=== PATIENT | female | born 1995 | race Caucasian/White ===

== ENCOUNTER → 2019-02-25 | Outpatient (CLI) | payer OTHER ==
--- NOTE | 2019-02-25 14:21 | REP ---
MRI brain without contrast: History: Chronic headache. Positive Romberg's sign. No comparison brain imaging. The patient reports episodes of dizziness and blackouts. Findings: The bony calvarium is intact. There is evidence of 25 mm of tonsillar ectopia at the foramen magnum with compression of the spinal medullary junction consistent with significant Arnold Chiari 1 type malformation. There is no evidence of hydrocephalous. No abnormal intracranial fluid collection is appreciated. There is no evidence of restricted diffusion to suggest acute ischemia. No hemorrhage or mass lesion is observed. No intraorbital abnormality is seen. There is no MR evidence of significant paranasal sinus disease. Impression: Moderate to marked tonsillar ectopia with compression of the spinal medullary junction at the level of the foramen magnum consistent with significant Arnold Chiari malformation type 1. No evidence of hydrocephalous. Electronically Signed by Tyler Chapin MD 02/25/2019 02:28 P
== END ==
LOC: M RAD 09:24
PROVIDERS: ATTEND Family Medicine
DX: G93.5 Compression of brain (principal)

== ENCOUNTER → 2019-05-21 | Outpatient (CLI) | payer OTHER ==
--- NOTE | 2019-05-21 17:15 | REPVR ---
PROCEDURE INFORMATION: Exam: MR Lumbar Spine Without Contrast. Exam date and time: 05/21/2019 3:27 PM Clinical history: 23 years old, female; Other: Pre-op for chiari surgery; Additional info: H/o chiari syndrome TECHNIQUE: Imaging protocol: Multiplanar magnetic resonance images of the lumbar spine without intravenous contrast. COMPARISON: No relevant prior studies available. FINDINGS: Vertebrae: Unremarkable. Spinal cord: Normal signal. No cord compression. L1-L2: No significant disc disease. No significant spinal stenosis. L2-L3: No significant disc disease. No significant spinal stenosis. L3-L4: No significant disc disease. No significant spinal stenosis. L4-L5: No significant disc disease. No significant spinal stenosis. L5-S1: No significant disc disease. No significant spinal stenosis. Soft tissues: Unremarkable. IMPRESSION: No acute abnormality. Electronically signed by: Kevin Sow On 05/21/2019 17:15:15 PM
--- NOTE | 2019-05-21 17:18 | REPVR ---
PROCEDURE INFORMATION: Exam: MR Thoracic Spine Without Contrast Exam date and time: 05/21/2019 3:28 PM Clinical history: 23 years old, female; Other: Pre op for chiari surgery; Additional info: H/o chiari syndrome TECHNIQUE: Imaging protocol: Multiplanar magnetic resonance images of the thoracic spine without contrast. COMPARISON: No relevant prior studies available. FINDINGS: Vertebrae: Unremarkable. Spinal cord: Normal signal. No cord compression. Discs/Spinal canal/Neural foramina: No significant disc disease. No significant spinal stenosis. Soft tissues: Unremarkable. IMPRESSION: Unremarkable thoracic spine. Electronically signed by: Kevin Sow On 05/21/2019 17:17:51 PM
--- NOTE | 2019-05-21 17:28 | REPVR ---
PROCEDURE INFORMATION: Exam: MR Cervical Spine Without Contrast Exam date and time: 05/21/2019 3:28 PM Clinical history: 23 years old, female; Other: Pre op for chiair surgery; Additional info: H/o chiari syndrome TECHNIQUE: Imaging protocol: Multiplanar magnetic resonance images of the cervical spine without intravenous contrast. COMPARISON: No relevant prior studies available. FINDINGS: Vertebrae: Unremarkable. Spinal cord: Approximate 10 mm long segment of increased signal within the upper cervical cord at the level of the C2 vertebral body. Discs/Spinal canal/Neural foramina: No significant disc disease. Brain: Elongated, peg-shaped cerebellar tonsils extend approximately 2.5 cm below foramen magnum into cervical spinal consistent with Chiari 1 malformation. Vasculature: Expected flow voids in the vertebral arteries. Soft tissues: Unremarkable IMPRESSION: Chiari 1 malformation with approximate 10 mm long segment of increased signal within the upper cervical spinal cord. Electronically signed by: Kevin Sow On 05/21/2019 17:28:22 PM
== END ==
LOC: M PLARAD 15:26
PROVIDERS: ATTEND Nurse Practitioner Pediatrics
DX: G93.5 Compression of brain (principal)

== ENCOUNTER 2019-05-30 05:10 | Emergency (ER) | payer OTHER ==
[~2019-05-30] VITALS: Ht 170.2 cm; Wt 116.4 kg
[2019-05-30] MEDS ORDERED: chlorproMAZINE INJ 50MG/2ML AMP (J3230) IM STA (05:58)
[2019-05-30 05:59] VITALS: BP 141/96
[2019-05-30] MEDS ORDERED: MORPHINE 4 MG/ML 1ML VIAL/SYRINGE (J2270) IM ONE (06:00)
--- NOTE | 2019-05-30 06:11 | REPVR ---
PROCEDURE INFORMATION: Exam: CT Head without contrast Exam date and time: 05/30/2019 5:40 AM Clinical history: 23 years old, female; Pain; Headache not specified; Prior surgery; Surgery date: Post-operative (0-2 days); Surgery type: Brain surgery (decompression) r/t chiari malformation TECHNIQUE: Imaging protocol: Computed tomography of the head without contrast. Radiation optimization: All CT scans at this facility use at least one of these dose optimization techniques: automated exposure control; mA and/or kV adjustment per patient size (includes targeted exams where dose is matched to clinical indication); or iterative reconstruction. COMPARISON: MRI-Brain without Contrast 02/25/2019 9:45 AM FINDINGS: Brain: Again seen is low lying cerebellar tonsils with crowding of the foramen magnum. Ventricles: Normal. No ventriculomegaly. Bones/joints: No patient is status post occipital lobe decompression craniectomy as well as resection of the posterior arch of C1. Sinuses: Visualized sinuses are unremarkable. No fluid levels. Mastoid air cells: Visualized mastoid air cells are well aerated. Soft tissues: Unremarkable. Vasculature: 2 bubbles of air seen in the cavernous sinus. IMPRESSION: 1. Chiari malformation Status post occipital decompression craniectomy and resection of the posterior arch of C1 with no gross evidence of intracranial hemorrhage, mass effect or midline shift. 2. Nonspecific few bubbles of air in the cavernous sinus. This could be venous air emboli from intravenous line or could be postsurgical. Followup suggested. Electronically signed by: Joce Phillips On 05/30/2019 06:11:10 AM
--- NOTE | 2019-06-01 12:46 | ED PDOC ---
Post-Departure Follow-Up meghann liang faxed formal report of ct head for fu Karissa Camilo MD Jun 01, 2019 12:46
== END 2019-05-30 06:39 | disposition home or self-care (01) ==
LOC: M ED 05:10
DX: G89.18 Other acute postprocedural pain (principal); Z87.728 Personal history of other specified (corrected) congenital malformations of nervous system and sense organs
CPT/HCPCS: 70450; 96374; 99284; J2270

== ENCOUNTER 2019-06-02 07:32 | Emergency (ER) | payer OTHER ==
[~2019-06-02] VITALS: Ht 170.2 cm; Wt 115.9 kg
[2019-06-02] MEDS ORDERED: CEPH500C (07:55)
[2019-06-02] MEDS ORDERED: OXYC-517 (07:55)
[2019-06-02] MEDS ORDERED: DIAZ5TAB PO (07:55)
[2019-06-02] MEDS ORDERED: ONDA4TAB5 (07:55)
[2019-06-02] MEDS ORDERED: GABA-1171 (07:55)
[2019-06-02] MEDS ORDERED: NS 1,000 ML IV ONE (08:15)
[2019-06-02] MEDS ORDERED: METOCLOPRAMIDE INJ 10MG/2ML VIAL (J2765) IV ONE (08:15)
[2019-06-02] MEDS ORDERED: KETOROLAC 30 MG/ML VIAL (J1885) IV ONE (08:15)
[2019-06-02] MEDS ORDERED: ACETAMINOPHEN 500 MG TAB PO ONE (08:15)
[2019-06-02] MEDS ORDERED: KETAMINE HCL IV ONE (09:00)
[2019-06-02] MEDS ORDERED: NS IV ONE (09:00)
[2019-06-02 10:10] VITALS: BP 130/81
== END 2019-06-02 11:05 | disposition home or self-care (01) ==
LOC: M ED 07:32
DX: G89.18 Other acute postprocedural pain (principal); Z87.728 Personal history of other specified (corrected) congenital malformations of nervous system and sense organs
CPT/HCPCS: 96365; 96375; 99284; J1885; J2765

== ENCOUNTER → 2019-06-21 | Outpatient (REF) | payer OTHER ==
[~2019-06-21] MED LIST: CEPH500C; DIAZ5TAB PO; GABA-1171; ONDA4TAB5; OXYC-517
[2019-06-21 15:57] LABS: BASO % 0.2 % (0.0-1.0); EOS # 0.1 10^3/uL (0.0-0.5); EOS % 2.1 % (0.0-3.0); HEMOGLOBIN 11.6 g/dl (12.0-15.5); LYMPH # 1.5 10^3/uL (1.5-5.0); LYMPH % 31.1 % (24.0-44.0); MEAN CORPUSCULAR HEMOGLOBIN 30.2 pg (27.0-33.0); MEAN CORPUSCULAR HGB CONC 32.2 g/dl (32.0-36.5); MEAN CORPUSCULAR VOLUME 93.8 fl (80.0-96.0); MONO # 0.4 10^3/uL (0.0-0.8); MONO % 7.3 % (0.0-5.0); NEUTROPHILS # 2.8 10^3/uL (1.5-8.5); NEUTROPHILS % 59.3 % (36.0-66.0); PLATELET COUNT, AUTOMATED 133 10^3/uL (150-450); RED BLOOD COUNT 3.84 10^6/uL (4.00-5.40); WHITE BLOOD COUNT 4.8 10^3/uL (4.0-10.0)
[2019-06-21 16:19] LABS: ERYTHROCYTE SEDIMENTATION RATE 28 mm/hr (0-20)
[2019-06-21 16:23] LABS: ALBUMIN 3.5 GM/DL (3.2-5.2); ALT/SGPT 15 U/L (12-78); BILIRUBIN,TOTAL 0.3 MG/DL (0.2-1.0); BLOOD UREA NITROGEN 9 MG/DL (7-18); C REACTIVE PROTEIN QUANTITATIV 0.31 MG/DL (0.00-0.30); CALCIUM LEVEL 8.7 MG/DL (8.5-10.1); CARBON DIOXIDE LEVEL 22 MEQ/L (21-32); CHLORIDE LEVEL 107 MEQ/L (98-107); CREATININE FOR GFR 0.67 MG/DL (0.55-1.30); GLOMERULAR FILTRATION RATE > 60.0 (>60); GLUCOSE, FASTING 108 MG/DL (70-100); POTASSIUM SERUM 3.5 MEQ/L (3.5-5.1); SODIUM LEVEL 138 MEQ/L (136-145); TOTAL PROTEIN 7.1 GM/DL (6.4-8.2)
== END ==
LOC: M LAB REF 15:21
PROVIDERS: ATTEND Internal Medicine
DX: T81.31XA Disruption of external operation (surgical) wound, not elsewhere classified, initial encounter (principal); B96.89 Other specified bacterial agents as the cause of diseases classified elsewhere; B95.2 Enterococcus as the cause of diseases classified elsewhere; Q07.00 Arnold-Chiari syndrome without spina bifida or hydrocephalus

== ENCOUNTER → 2019-06-28 | Outpatient (REF) | payer OTHER ==
[2019-06-28 13:36] LABS: BASO % 0.2 % (0.0-1.0); EOS # 0.1 10^3/uL (0.0-0.5); EOS % 1.3 % (0.0-3.0); HEMATOCRIT 37.7 % (36.0-47.0); HEMOGLOBIN 12.4 g/dl (12.0-15.5); LYMPH # 1.4 10^3/uL (1.5-5.0); LYMPH % 30.3 % (24.0-44.0); MEAN CORPUSCULAR HEMOGLOBIN 30.8 pg (27.0-33.0); MEAN CORPUSCULAR HGB CONC 32.9 g/dl (32.0-36.5); MEAN CORPUSCULAR VOLUME 93.8 fl (80.0-96.0); MONO # 0.4 10^3/uL (0.0-0.8); MONO % 7.9 % (0.0-5.0); NEUTROPHILS # 2.8 10^3/uL (1.5-8.5); NEUTROPHILS % 60.1 % (36.0-66.0); PLATELET COUNT, AUTOMATED 129 10^3/uL (150-450); RED BLOOD COUNT 4.02 10^6/uL (4.00-5.40); WHITE BLOOD COUNT 4.7 10^3/uL (4.0-10.0)
[2019-06-28 13:57] LABS: ERYTHROCYTE SEDIMENTATION RATE 35 mm/hr (0-20)
[2019-06-28 14:05] LABS: BLOOD UREA NITROGEN 8 MG/DL (7-18); CREATININE FOR GFR 0.54 MG/DL (0.55-1.30); GLUCOSE, FASTING 126 MG/DL (70-100)
[2019-06-28 14:06] LABS: ALBUMIN 3.4 GM/DL (3.2-5.2); ALT/SGPT 32 U/L (12-78); BILIRUBIN,TOTAL 0.4 MG/DL (0.2-1.0); C REACTIVE PROTEIN QUANTITATIV 0.64 MG/DL (0.00-0.30); CALCIUM LEVEL 8.9 MG/DL (8.5-10.1); CARBON DIOXIDE LEVEL 23 MEQ/L (21-32); CHLORIDE LEVEL 107 MEQ/L (98-107); GLOMERULAR FILTRATION RATE > 60.0 (>60); POTASSIUM SERUM 3.8 MEQ/L (3.5-5.1); SODIUM LEVEL 136 MEQ/L (136-145); TOTAL PROTEIN 7.2 GM/DL (6.4-8.2)
== END ==
LOC: M SHH 12:56
PROVIDERS: ATTEND Internal Medicine
DX: T81.31XA Disruption of external operation (surgical) wound, not elsewhere classified, initial encounter (principal); B96.89 Other specified bacterial agents as the cause of diseases classified elsewhere; B95.2 Enterococcus as the cause of diseases classified elsewhere; Q07.00 Arnold-Chiari syndrome without spina bifida or hydrocephalus; Y83.9 Surgical procedure, unspecified as the cause of abnormal reaction of the patient, or of later complication, without mention of misadventure at the time of the procedure

== ENCOUNTER → 2019-07-05 | Outpatient (REF) | payer OTHER ==
[2019-07-05 14:36] LABS: BASO % 0.4 % (0.0-1.0); EOS # 0.1 10^3/uL (0.0-0.5); EOS % 1.7 % (0.0-3.0); HEMATOCRIT 35.9 % (36.0-47.0); HEMOGLOBIN 11.4 g/dl (12.0-15.5); LYMPH # 1.3 10^3/uL (1.5-5.0); LYMPH % 28.4 % (24.0-44.0); MEAN CORPUSCULAR HEMOGLOBIN 29.7 pg (27.0-33.0); MEAN CORPUSCULAR HGB CONC 31.8 g/dl (32.0-36.5); MEAN CORPUSCULAR VOLUME 93.5 fl (80.0-96.0); MONO # 0.5 10^3/uL (0.0-0.8); MONO % 10.5 % (0.0-5.0); NEUTROPHILS # 2.7 10^3/uL (1.5-8.5); NEUTROPHILS % 58.8 % (36.0-66.0); PLATELET COUNT, AUTOMATED 142 10^3/uL (150-450); RED BLOOD COUNT 3.84 10^6/uL (4.00-5.40); WHITE BLOOD COUNT 4.6 10^3/uL (4.0-10.0)
[2019-07-05 14:58] LABS: ALBUMIN 3.5 GM/DL (3.2-5.2); ALT/SGPT 35 U/L (12-78); BILIRUBIN,TOTAL 0.3 MG/DL (0.2-1.0); BLOOD UREA NITROGEN 7 MG/DL (7-18); C REACTIVE PROTEIN QUANTITATIV 0.59 MG/DL (0.00-0.30); CALCIUM LEVEL 8.8 MG/DL (8.5-10.1); CARBON DIOXIDE LEVEL 24 MEQ/L (21-32); CHLORIDE LEVEL 105 MEQ/L (98-107); CREATININE FOR GFR 0.57 MG/DL (0.55-1.30); GLOMERULAR FILTRATION RATE > 60.0 (>60); GLUCOSE, FASTING 107 MG/DL (70-100); POTASSIUM SERUM 3.7 MEQ/L (3.5-5.1); SODIUM LEVEL 138 MEQ/L (136-145); TOTAL PROTEIN 7.1 GM/DL (6.4-8.2)
[2019-07-05 15:18] LABS: ERYTHROCYTE SEDIMENTATION RATE 26 mm/hr (0-20)
== END ==
LOC: M SHH 13:41
PROVIDERS: ATTEND Internal Medicine Infectious Disease
DX: Z51.81 Encounter for therapeutic drug level monitoring (principal); Z79.2 Long term (current) use of antibiotics; A49.8 Other bacterial infections of unspecified site

== ENCOUNTER → 2019-07-12 | Outpatient (REF) | payer OTHER ==
[2019-07-12 13:27] LABS: EOS % 0.8 % (0.0-3.0); HEMATOCRIT 34.7 % (36.0-47.0); HEMOGLOBIN 11.5 g/dl (12.0-15.5); LYMPH # 1.2 10^3/uL (1.5-5.0); LYMPH % 49.6 % (24.0-44.0); MEAN CORPUSCULAR HEMOGLOBIN 30.2 pg (27.0-33.0); MEAN CORPUSCULAR HGB CONC 33.1 g/dl (32.0-36.5); MEAN CORPUSCULAR VOLUME 91.1 fl (80.0-96.0); MONO # 0.3 10^3/uL (0.0-0.8); MONO % 12.4 % (0.0-5.0); NEUTROPHILS % 36.8 % (36.0-66.0); PLATELET COUNT, AUTOMATED 137 10^3/uL (150-450); RED BLOOD COUNT 3.81 10^6/uL (4.00-5.40); WHITE BLOOD COUNT 2.4 10^3/uL (4.0-10.0)
[2019-07-12 13:51] LABS: ALBUMIN 3.4 GM/DL (3.2-5.2); ALT/SGPT 40 U/L (12-78); BILIRUBIN,TOTAL 0.2 MG/DL (0.2-1.0); BLOOD UREA NITROGEN 7 MG/DL (7-18); C REACTIVE PROTEIN QUANTITATIV 0.73 MG/DL (0.00-0.30); CALCIUM LEVEL 8.1 MG/DL (8.5-10.1); CARBON DIOXIDE LEVEL 24 MEQ/L (21-32); CHLORIDE LEVEL 106 MEQ/L (98-107); CREATININE FOR GFR 0.47 MG/DL (0.55-1.30); GLOMERULAR FILTRATION RATE > 60.0 (>60); GLUCOSE, FASTING 77 MG/DL (70-100); SODIUM LEVEL 138 MEQ/L (136-145); TOTAL PROTEIN 6.9 GM/DL (6.4-8.2)
[2019-07-12 14:20] LABS: NEUTROPHILS # 0.9 10^3/uL (1.5-8.5)
[2019-07-12 15:23] LABS: ERYTHROCYTE SEDIMENTATION RATE 35 mm/hr (0-20)
== END ==
LOC: M SHH 12:56
PROVIDERS: ATTEND Internal Medicine Infectious Disease
DX: Z79.2 Long term (current) use of antibiotics (principal); A49.8 Other bacterial infections of unspecified site

== ENCOUNTER → 2019-07-14 | Outpatient (CLI) | payer OTHER ==
--- NOTE | 2019-07-14 08:59 | REP ---
MRI brain: 07/14/2019. Indication: Headache. Comparison: 02/25/2019. Technique: Multiplanar short and long TR sequences of the brain were obtained from skull base to vertex. Findings: There are no areas of restricted diffusion to indicate an acute infarction. There is no intracranial mass effect or hydrocephalous. There are scattered areas of elevated T2 prolongation throughout the cerebral hemisphere white matter most pronounced within the left armstrong radiata. The large intracranial flow voids are unremarkable. There is no evidence of intracranial hemorrhage. Chiari malformation is stable. The midline structures are otherwise unremarkable. The large intracranial flow voids are unremarkable as well. Impression: No acute intracranial process. Multiple small foci of abnormal white matter signal with considerations including a demyelinating process, Lyme's disease, CADASIL, earlier than expected sequelae of microangiopathic ischemic disease and additional less likely etiologies. Stable Chiari one malformation. Electronically Signed by Jeff Morris DO 07/14/2019 08:51 A
== END ==
LOC: M RAD 07:20
PROVIDERS: ATTEND Nurse Practitioner Family
DX: A49.8 Other bacterial infections of unspecified site (principal); T81.43XD Infection following a procedure, organ and space surgical site, subsequent encounter; G93.5 Compression of brain; Y83.9 Surgical procedure, unspecified as the cause of abnormal reaction of the patient, or of later complication, without mention of misadventure at the time of the procedure

== ENCOUNTER 2019-09-22 11:04 | Emergency (ER) | payer OTHER ==
[~2019-09-22] VITALS: Ht 170.2 cm; Wt 125.0 kg
[~2019-09-22 11:04] MED LIST changes: +ONDA-83; -ONDA4TAB5
[2019-09-22] MEDS ORDERED: PRENTAB53 PO (11:18)
[2019-09-22] MEDS ORDERED: FIOR1CAP PO (14:38)
[2019-09-22 15:37] VITALS: BP 113/62
== END 2019-09-22 15:34 | disposition home or self-care (01) ==
LOC: M ED 11:04
DX: R51 Headache (principal); Z3A.19 19 weeks gestation of pregnancy; O99.342 Other mental disorders complicating pregnancy, second trimester; O26.892 Other specified pregnancy related conditions, second trimester; O99.352 Diseases of the nervous system complicating pregnancy, second trimester; Z79.899 Other long term (current) drug therapy

== ENCOUNTER 2020-02-09 05:17 | Inpatient (IN) | payer OTHER ==
--- NOTE | 2020-02-01 19:52 | HPE ---
DATE OF SCHEDULED ADMISSION: 02/09/2020 This lady is a 23-year-old 2, para 1, her last menstrual period (LMP) is May 11, 2019. Her estimated date of confinement (EDC) is February 15, 2020. Booked for elective repeat section on February 09, 2020. Her risk factors are she has a Chiari malformation, type 1, stable. Last MRI and CT was in 2018. She had a decompression craniotomy in May 2019. She suffers from depression, takes Zoloft and is seeing [facility]. Her body mass index (BMI) is 40.88. She has had a previous section, and she has a history of migraines. PAST HISTORY: April 2017: At 41 weeks, had induction of labor, failed to progress, had a primary section, a live female , 7 pounds 5 ounces LABORATORY VALUES: She is A negative, received RhoGAM, HIV negative, hepatitis negative, RPR negative, rubella immune. Varicella immune. Pap was normal. Urine was negative. Gonorrhea and chlamydia are negative. 1-hour glucose early was 97. She had a 3-hour GTT in which the fasting was 83, the 1-hour was 120, the 2-hour was 103 and a 3-hour was 44. She has had a recent GBS culture, the results are not back yet. On examination today, symphysis fundus height is 38, vertex presenting, heart is in the 130s. Her blood pressure is 125/80, respirations are 18, pulse is 78, and she is afebrile. She is 5 feet 7 inches and weighs 301 pounds. We discussed the risks and benefits of section, including hemorrhage, infection, perforation, , reoperation, remote possibility of hysterectomy, remote possibility of blood transfusion because of imminent bleeding. We also discussed the risks, potential, of laceration or fetus ending up in the intensive care unit (NICU) for observation. The patient expressed understanding of the same. Despite the fact of using antibiotic therapy, the patient has had a previous infection post section because her BMI is 40.88. After expressed understanding of the procedure and the risks and benefits, signed the consent form. All questions were answered. We had a 30-minute discussion with examination and evaluation, and the patient is booked for COVID testing prior to coming for her repeat section on February 09, 2020.
[~2020-02-09] VITALS: Ht 170.2 cm; Wt 136.0 kg
[2020-02-09] VITALS (7 sets, daily range): BP systolic 116–144; BP diastolic 66–87
[~2020-02-09 05:17] MED LIST changes: +B-2100TA PO; +D32000CA PO; +FERR325T3 PO; +FIOR1CAP PO; +MAGN400C2 PO; +PRENTAB53 PO; +PYRI50TA40 PO
[2020-02-09] MEDS: LR 1,000 ML IV ONE ×2 (05:45→07:09)
[2020-02-09] MEDS ORDERED: BICITRA 30ML SOLN UDC PO ONE (05:45)
[2020-02-09] MEDS ORDERED: LR 1,000 ML IV SCH ×2 (05:45→09:30)
[2020-02-09] MEDS ORDERED: ceFAZolin SOD 2 GM in IV 1 EA IV ONE (05:45)
[2020-02-09] MEDS ORDERED: AZITHROMYCIN INJ 500 MG, VIAL MATE ADAPTER 1 EACH in D5W 250 ML IV ONE (06:00)
[2020-02-09 06:49] LABS: HEMATOCRIT 35.5 % (36.0-47.0); MEAN CORPUSCULAR HEMOGLOBIN 30.4 pg (27.0-33.0); MEAN CORPUSCULAR HGB CONC 33.8 g/dl (32.0-36.5); MEAN CORPUSCULAR VOLUME 89.9 fl (80.0-96.0); PLATELET COUNT, AUTOMATED 143 10^3/uL (150-450); RED BLOOD COUNT 3.95 10^6/uL (4.00-5.40); WHITE BLOOD COUNT 7.1 10^3/uL (4.0-10.0)
[2020-02-09] MEDS ORDERED: BUPIVACAINE HCL 0.25% 10ML VIAL XX ONE (07:15)
[2020-02-09] MEDS ORDERED: ACETAMINOPHEN 650 MG SUPP PR ONE (07:15)
[2020-02-09] MEDS ORDERED: MORPHINE PRES-FREE INJ 10 MG/10 ML VIAL (J2274) As Ordered ONE (07:17)
[2020-02-09] MEDS ORDERED: OXYTOCIN INJ 10 UNITS/ML VIAL (J2590) As Ordered ONE ×2 (07:18→08:23)
[2020-02-09] MEDS ORDERED: ASPI81TA85 PO (07:30)
[2020-02-09] MEDS ORDERED: MAPA500T2 PO (07:31)
[2020-02-09] MEDS ORDERED: PREV30TA3 PO (07:31)
[2020-02-09] MEDS ORDERED: METOCLOPRAMIDE INJ 10MG/2ML VIAL (J2765 PER 1) IV PRN ×2 (07:50→09:30)
[2020-02-09] MEDS ORDERED: ONDANSETRON 4MG/2ML VIAL IV PRN ×2 (07:50→09:30)
[2020-02-09] MEDS ORDERED: diphenhydrAMINE 50MG/ML VIAL (J1200) IV PRN (07:50)
[2020-02-09] MEDS ORDERED: NALBUPHINE HCL 10 MG/ML AMP (J2300) IV PRN (07:50)
[2020-02-09] MEDS ORDERED: NALOXONE INJ 0.4MG/1ML VIAL (J2310 PER 1MG) IV PRN ×2 (07:50)
[2020-02-09] MEDS ORDERED: dexameTHASONE 4 MG/ML 1ML VIAL (J1100 PER 1MG) As Ordered ONE (07:59)
[2020-02-09] MEDS ORDERED: ePHEDrine SULFATE 25 MG/5 ML(5MG/ML) SYRINGE As Ordered ONE (07:59)
[2020-02-09] MEDS ORDERED: ONDANSETRON 4MG/2ML VIAL As Ordered ONE (07:59)
[2020-02-09] MEDS ORDERED: KETOROLAC 60 MG/2 ML VIAL As Ordered ONE (07:59)
[2020-02-09] MEDS ORDERED: PHENYLephrine HCL 500 MCG/5 ML (100MCG/ML) SYRINGE (J2370) As Ordered ONE (08:14)
[2020-02-09 08:45] LABS: CORD GAS ABE V -4.3; CORD GAS HCO3 V 23.9 MEQ/L; CORD GAS O2 SAT V 48.8 %; CORD GAS PCO2 V 56.1 mmHg; CORD GAS PH V 7.247 UNITS; CORD GAS PO2 V 23.5 mmHg; CORD GAS SBC V 19.8 MEQ/L; CORD GAS TCO2 V 25.6 MEQ/L
[2020-02-09 08:50] LABS: CORD GAS HCO3 A 22.3 MEQ/L; CORD GAS O2 SAT A 16.7 %; CORD GAS PCO2 A 61.2 mmHg; CORD GAS PH A 7.179 UNITS; CORD GAS PO2 A 12.8 mmHg; CORD GAS SBC A 17.1 MEQ/L; CORD GAS TCO2 A 24.2 MEQ/L
[2020-02-09] MEDS: PRENATAL VITAMINS CHEWABLE TABLET PO SCH (09:00)
[2020-02-09] MEDS ORDERED: fentaNYL 100 MCG/2 ML INJECTION (J3010) IV PRN (09:30)
[2020-02-09] MEDS ORDERED: RHOGAM 300 MCG (1500 IU) INJ (J2790) IM SCH ×2 (09:30→09:45)
[2020-02-09] MEDS ORDERED: PERCOCET 5MG/325MG TAB PO PRN (09:30)
[2020-02-09] MEDS ORDERED: MEASLES,MUMPS,RUBELLA VACCINE INJ (MMR-II) (90707) SC SCH ×2 (09:30)
[2020-02-09] MEDS ORDERED: OXYTOCIN INJ 10 UNITS/ML VIAL (J2590) IV ONE (09:45)
[2020-02-09] MEDS ORDERED: DOCUSATE SODIUM 100 MG CAP PO PRN (09:45)
[2020-02-09] MEDS ORDERED: MOM 30ML SUSPENSION UDC PO PRN (09:45)
[2020-02-09] MEDS ORDERED: OXYTOCIN 30 UNITS IN 0.9% NaCl 500ML IV BAG (J2590) As Ordered ONE (09:45)
[2020-02-09] MEDS ORDERED: ACETAMINOPHEN 500 MG TAB PO PRN (09:45)
[2020-02-09] MEDS ORDERED: METHYLERGONOVINE MALEATE 0.2 MG TAB PO PRN (09:45)
[2020-02-09] MEDS ORDERED: OXYTOCIN DRIP 30 UNITS in IV 1 EA IV ONE (09:45)
[2020-02-09] MEDS: OXYTOCIN DRIP 30 UNITS in IV 1 EA IV SCH ×2 (10:10→12:42)
[2020-02-09] MEDS ORDERED: OXYTOCIN DRIP 30 UNITS in IV 1 EA IV SCH (10:45)
[2020-02-09] MEDS ORDERED: METHYLERGONOVINE MALEATE 0.2 MG/ML VIAL (J2210) IM ONE (10:45)
[2020-02-09] MEDS: KETOROLAC 30 MG/ML 1ML VIAL IV SCH ×2 (16:20→21:50)
[2020-02-10 02:26] VITALS: BP 119/67
[2020-02-10] MEDS: KETOROLAC 30 MG/ML 1ML VIAL IV SCH (03:21)
[2020-02-10 05:35] VITALS: BP 117/76
[2020-02-10 07:19] LABS: HEMATOCRIT 33.3 % (36.0-47.0); MEAN CORPUSCULAR HEMOGLOBIN 30.4 pg (27.0-33.0); PLATELET COUNT, AUTOMATED 103 10^3/uL (150-450); RED BLOOD COUNT 3.62 10^6/uL (4.00-5.40); WHITE BLOOD COUNT 8.5 10^3/uL (4.0-10.0)
[2020-02-10] MEDS ORDERED: PRENATAL VITAMINS CHEWABLE TABLET PO SCH (09:00)
[2020-02-10 10:00] VITALS: BP 118/68
[2020-02-10] MEDS: IBUPROFEN 800 MG TAB PO SCH ×2 (11:26→18:45)
[2020-02-10] MEDS: PRENATAL VITAMINS CHEWABLE TABLET PO SCH (14:03)
[2020-02-10 14:17] VITALS: BP 130/60
--- NOTE | 2020-02-10 16:25 | IPN ---
DATE: 02/10/2020 This lady is a 24-year-old 2, now para 2, who had a repeat section of a live- male infant, 7 pounds 10 ounces, 3460 grams, scores of 8 and 9 at one and five minutes, respectively. Arterial pH 7.17, base excess -7.0. Venous pH 7.24, base excess -4.3. On her first day, we discussed phlebitis, cystitis, mastitis, metritis, cellulitis, diet, exercise pain management, perineal, breast, and wound care. Her admitting hemoglobin was 12.0, hematocrit 35.5, and platelets were 143. day #1 hemoglobin 11.0, hematocrit 33.3, and platelets were 103. Her vital signs this morning: Her blood pressure is 117/76, respirations are 18, pulse 61, temperature 96.9. The rest examination unremarkable. Normocephalic, atraumatic. Neck: Full range of motion. Pupils equal and reactive to light. Distal pulses are symmetric. No evidence of deep vein thrombosis (DVT), pulmonary embolism (PE), or superficial phlebitis. Chest is clear bilaterally to bases. No wheezes or rhonchi. No costovertebral angle (CVA) tenderness. Abdomen is soft. Uterus 2 below. Lochia is moderate. Incision is under an Optifoam and no evidence of active bleeding. The Cortez catheter is removed. She is voiding, passing gas. In summary, we have a term gestation, repeat section, doing well. Anticipate discharge tomorrow.
[2020-02-10] MEDS ORDERED: PERCOCET 5MG/325MG TAB PO PRN (17:00)
[2020-02-10 18:14] VITALS: BP 138/87
[2020-02-10] MEDS: PANTOPRAZOLE 20 MG TAB PO SCH (18:44)
[2020-02-10 22:05] VITALS: BP 117/68
[2020-02-11] MEDS: PERCOCET 5MG/325MG TAB PO PRN ×2 (01:31→08:21)
[2020-02-11 02:24] VITALS: BP 111/56
[2020-02-11] MEDS: IBUPROFEN 800 MG TAB PO SCH (02:34)
[2020-02-11 06:38] VITALS: BP 100/53
[2020-02-11] MEDS ORDERED: PERCOCET PO (07:02)
[2020-02-11] MEDS ORDERED: IBUP80TA PO (07:02)
[2020-02-11] MEDS ORDERED: DOCU100C16 PO (07:02)
[2020-02-11] MEDS: PRENATAL VITAMINS CHEWABLE TABLET PO SCH (08:21)
[2020-02-11] MEDS ORDERED: PANTOPRAZOLE 20 MG TAB PO SCH (09:00)
[2020-02-11] MEDS: PANTOPRAZOLE 20 MG TAB PO SCH (09:00)
[2020-02-11 10:14] VITALS: BP 141/86
--- NOTE | 2020-02-13 16:22 | DSES ---
DATE OF ADMISSION: 02/09/2020 DATE OF DISCHARGE: 02/11/2020 This lady is a 24-year-old 2, now para 2, who had a repeat section of a live male weighing 7 pounds, 10 ounces, 3460 grams, scores of 8 and 9 at one and five minutes respectively. Arterial pH 7.17, base excess -7.0, venous pH 7.24, base excess -4.3. We discussed phlebitis, cystitis, mastitis, endometritis and cellulitis, diet, exercise, pain management, perineal, breast and wound care. This morning on discharge, her blood pressure was 100/53, respirations 18, pulse 60, temperature is 97.4. Her admitting hemoglobin was 12.0, hematocrit 35.5 and platelets were 143. Discharge hemoglobin 11.0, hematocrit 33.3, and platelets are 103. The rest examination is unremarkable. Normocephalic, atraumatic. Neck: Full range of motions. Pupils equal and reactive to light. Distal pulses are symmetric. No evidence of deep vein thrombosis (DVT), pulmonary embolism (PE), or superficial phlebitis. Chest is clear bilaterally to bases. No wheezes or rhonchi. No costovertebral angle (CVA) tenderness. Abdomen: Soft, uterus 2 below. Lochia is moderate and four quadrant bowel sounds are noted. Incision has the Optifoam. No bleeding through. She has no rashes, lesions or pruritus. No arthralgia or myalgia. No complaints of joint pain. No complaint of cough, wheeze, shortness of breath, or dyspnea on exertion. No nausea, vomiting, diarrhea, or constipation. No urgency or frequency. She is breast-feeding and doing well. Plans are for a Nexplanon for control at her six-week checkup. She will have a two-week incision check. Medications will be picked up at [place] and the patient will be discharged later today. She was also noted to be COVID negative on admission.
--- NOTE | 2020-02-14 21:10 | IPN ---
DATE: 02/09/2020 This patient and requested circumcision of their male , after discussing risks and benefits of circumcision, the medical, the nonmedical indication, the penile block and aftercare, expressed understanding of penile block, aftercare. All questions were answered. 20-minute discussion. Signed the consent form. We await clearance by the lay out machine operator.
== END 2020-02-11 11:05 | disposition home or self-care (01) | DRG 773 ==
LOC: M LDI 05:17 → M OBS 11:20
PROVIDERS: ADMIT Obstetrics & Gynecology; ATTEND Obstetrics & Gynecology
PROC: 10D00Z1 Extraction of Products of Conception, Low, Open Approach (ICD-10-PCS; principal; 2020-02-09 07:30)
DX: O34.211 Maternal care for low transverse scar from previous cesarean delivery (principal); Z37.0 Single live birth; Z3A.39 39 weeks gestation of pregnancy; F32.9 Major depressive disorder, single episode, unspecified; O99.344 Other mental disorders complicating childbirth

== ENCOUNTER 2020-03-01 19:43 | Emergency (ER) | payer OTHER ==
[~2020-03-01] VITALS: Ht 167.6 cm; Wt 127.3 kg
[~2020-03-01 19:43] MED LIST changes: +ASPI81TA85 PO; +DOCU100C16 PO; +IBUP80TA PO; +MAPA500T2 PO; +PERCOCET PO; +PREV30TA3 PO
[2020-03-01] MEDS ORDERED: NS 1,000 ML IV ONE (20:30)
[2020-03-01] MEDS ORDERED: ONDANSETRON 4MG/2ML VIAL IV ONE (20:30)
[2020-03-01] MEDS ORDERED: KETOROLAC 30 MG/ML 1ML VIAL IV ONE (20:30)
[2020-03-01 20:35] LABS: BASO % 0.1 % (0.0-1.0); EOS # 0.1 10^3/uL (0.0-0.5); EOS % 0.6 % (0.0-3.0); HEMATOCRIT 40.4 % (36.0-47.0); LYMPH # 1.4 10^3/uL (1.5-5.0); LYMPH % 15.9 % (24.0-44.0); MEAN CORPUSCULAR HEMOGLOBIN 29.1 pg (27.0-33.0); MEAN CORPUSCULAR HGB CONC 32.2 g/dl (32.0-36.5); MEAN CORPUSCULAR VOLUME 90.6 fl (80.0-96.0); MONO # 0.6 10^3/uL (0.0-0.8); MONO % 6.8 % (0.0-5.0); NEUTROPHILS # 6.8 10^3/uL (1.5-8.5); NEUTROPHILS % 76.4 % (36.0-66.0); PLATELET COUNT, AUTOMATED 172 10^3/uL (150-450); RED BLOOD COUNT 4.46 10^6/uL (4.00-5.40); WHITE BLOOD COUNT 8.9 10^3/uL (4.0-10.0)
[2020-03-01 21:05] LABS: ALBUMIN 3.7 GM/DL (3.2-5.2); ALT/SGPT 27 U/L (12-78); BILIRUBIN,DIRECT 0.1 MG/DL (0.0-0.2); BILIRUBIN,TOTAL 0.3 MG/DL (0.2-1.0); BLOOD UREA NITROGEN 6 MG/DL (7-18); CALCIUM LEVEL 8.9 MG/DL (8.5-10.1); CARBON DIOXIDE LEVEL 25 MEQ/L (21-32); CHLORIDE LEVEL 105 MEQ/L (98-107); CREATININE FOR GFR 0.75 MG/DL (0.55-1.30); GLOMERULAR FILTRATION RATE > 60.0 (>60); GLUCOSE, FASTING 86 MG/DL (70-100); LIPASE 121 U/L (73-393); SODIUM LEVEL 137 MEQ/L (136-145); TOTAL PROTEIN 7.5 GM/DL (6.4-8.2)
[2020-03-01] MEDS ORDERED: ISOVUE-370 76% 100ML VIAL As Ordered ONE (21:40)
--- NOTE | 2020-03-01 22:31 | REPVR ---
PROCEDURE INFORMATION: Exam: CT Abdomen And Pelvis With Contrast Exam date and time: 03/01/2020 9:54 PM Age: 24 years old Clinical indication: Abdominal pain; Flank; Lower; Prior surgery; Surgery date: <1 month; Surgery type: C-sec 02/09/20; Additional info: UTI, flank pain, recent c/s, R/O pyelo TECHNIQUE: Imaging protocol: Computed tomography of the abdomen and pelvis with intravenous contrast. Radiation optimization: All CT scans at this facility use at least one of these dose optimization techniques: automated exposure control; mA and/or kV adjustment per patient size (includes targeted exams where dose is matched to clinical indication); or iterative reconstruction. Contrast material: ISOVUE 370; Contrast volume: 100 ml; Contrast route: INTRAVENOUS (IV); COMPARISON: No relevant prior studies available. FINDINGS: Liver: Normal. No mass. Gallbladder and bile ducts: Normal. No calcified stones. No ductal dilation. Pancreas: Normal. No ductal dilation. Spleen: Normal. No splenomegaly. Adrenals: Normal. No mass. Kidneys and ureters: No evidence of renal stones, or hydroureteronephrosis. No perinephric stranding. No CT evidence of pyelonephritis. Stomach and bowel: Unremarkable. No obstruction. No mucosal thickening. Appendix: Normal appendix. Intraperitoneal space: Trace free fluid in the pelvis. Vasculature: Unremarkable. No abdominal aortic aneurysm. Lymph nodes: Multiple tiny mesenteric and right lower quadrant lymph nodes, nonspecific. Bladder: Urinary bladder is not well distended and wall appears to be thickened and irregular may represent mild cystitis versus nondistention. Further evaluation with urinalysis and culture is recommended. Reproductive: Unremarkable as visualized. Bones/joints: Unremarkable. No acute fracture. Soft tissues: Unremarkable. IMPRESSION: No evidence of renal stones, or hydroureteronephrosis. No perinephric stranding. No CT evidence of pyelonephritis. Urinary bladder is not well distended and wall appears to be thickened and irregular may represent mild cystitis versus nondistention. Further evaluation with urinalysis and culture is recommended. Electronically signed by: Sugar Torres On 03/01/2020 22:31:42 PM
[2020-03-01] MEDS ORDERED: KEFL500C17 PO (23:02)
[2020-03-01 23:06] VITALS: BP 131/68
== END 2020-03-01 23:13 | disposition home or self-care (01) ==
LOC: M ED 19:43
DX: N39.0 Urinary tract infection, site not specified (principal); Z79.899 Other long term (current) drug therapy
CPT/HCPCS: 74177; 80047; 80048; 80076; 81001; 83690; 84702; 85025; 87088; 87186; 93041; 96361; 96374; 96375; 99284; J1885; J2405; Q9967

== ENCOUNTER 2020-03-04 02:11 | Inpatient (IN) | payer OTHER ==
[~2020-03-04] VITALS: Ht 167.6 cm; Wt 127.8 kg
[~2020-03-04 02:11] MED LIST changes: -ASPI81TA85 PO; +ASPI81TA86 PO; +KEFL500C17 PO
[2020-03-04] MEDS ORDERED: NS 1,000 ML IV ONE (04:15)
[2020-03-04 04:25] LABS: AMORPHOUS SEDIMENT SMALL (NEGATIVE); APPEARANCE, URINE CLOUDY (CLEAR); BACTERIA, URINE AUTO 1+ (NEGATIVE); BILIRUBIN, URINE AUTO NEGATIVE (NEGATIVE); BLOOD, URINE BLOOD 3+ (NEGATIVE); COLOR, URINE YELLOW (YELLOW); GLUCOSE, URINE (UA) AUTO NEGATIVE (NEGATIVE); KETONE, URINE AUTO NEGATIVE (NEGATIVE); LEUKOCYTE ESTERASE, URINE AUTO 3+ (NEGATIVE); MUCUS, URINE SMALL (NEGATIVE); NITRITE, URINE AUTO NEGATIVE (NEGATIVE); PROTEIN, URINE AUTO 2+ mg/dL (NEGATIVE); RBC, URINE AUTO TNTC /HPF (0-3); SPECIFIC GRAVITY URINE AUTO 1.014 (1.002-1.035); SQUAMOUS EPITHELIAL CELL UR AU 0 /HPF (0-6); TRANSITIONAL EPITHELIAL AUTO <1 /HPF; UROBILINOGEN, URINE AUTO 0.2 mg/dL (0.0-2.0); WBC, URINE AUTO 139 /HPF (0-3)
[2020-03-04 04:38] LABS: BASO % 0.1 % (0.0-1.0); EOS % 0.3 % (0.0-3.0); HEMATOCRIT 39.3 % (36.0-47.0); HEMOGLOBIN 12.7 g/dl (12.0-15.5); LYMPH # 1.2 10^3/uL (1.5-5.0); LYMPH % 13.5 % (24.0-44.0); MEAN CORPUSCULAR HEMOGLOBIN 29.3 pg (27.0-33.0); MEAN CORPUSCULAR HGB CONC 32.3 g/dl (32.0-36.5); MEAN CORPUSCULAR VOLUME 90.6 fl (80.0-96.0); MONO # 0.5 10^3/uL (0.0-0.8); MONO % 5.6 % (0.0-5.0); NEUTROPHILS # 7.3 10^3/uL (1.5-8.5); NEUTROPHILS % 80.1 % (36.0-66.0); PLATELET COUNT, AUTOMATED 161 10^3/uL (150-450); RED BLOOD COUNT 4.34 10^6/uL (4.00-5.40); WHITE BLOOD COUNT 9.1 10^3/uL (4.0-10.0)
[2020-03-04 04:59] LABS: BLOOD UREA NITROGEN 6 MG/DL (7-18); CALCIUM LEVEL 8.6 MG/DL (8.5-10.1); CARBON DIOXIDE LEVEL 24 MEQ/L (21-32); CHLORIDE LEVEL 109 MEQ/L (98-107); CREATININE FOR GFR 0.67 MG/DL (0.55-1.30); GLOMERULAR FILTRATION RATE > 60.0 (>60); GLUCOSE, FASTING 91 MG/DL (70-100); POTASSIUM SERUM 3.7 MEQ/L (3.5-5.1); SODIUM LEVEL 139 MEQ/L (136-145)
[2020-03-04] MEDS ORDERED: cefTRIAXone SOD 2 GM in D5W MINI-BAG PLUS 50 ML IV ONE (05:00)
--- NOTE | 2020-03-04 05:11 | REPVR ---
PROCEDURE INFORMATION: Exam: CT Abdomen and Pelvis without Contrast Exam date and time: 03/04/20 (4:38am) Age: 24 years old Clinical indication: Left flank pain. Renal colic. TECHNIQUE: Imaging protocol: Computed tomography of the abdomen and pelvis without contrast. Radiation optimization: All CT scans at this facility use at least one of these dose optimization techniques: automated exposure control; mA and/or kV adjustment per patient size (includes targeted exams where dose is matched to clinical indication); or iterative reconstruction. COMPARISON: CT ABDOMEN PELVIS of 03/01/20 FINDINGS: Liver: Normal. No solid mass. Gallbladder and bile ducts: Normal. No calcified stones. No ductal dilatation. Pancreas: Normal. No ductal dilatation. Spleen: Splenomegaly. Adrenals: Normal. No mass. Kidneys and ureters: Normal. No hydronephrosis. Stomach and bowel: Unremarkable. No bowel obstruction. No mucosal thickening. Appendix: A normal appendix is visualized. Intraperitoneal space: Unremarkable. No free air. No significant fluid collection. Vasculature: Unremarkable. No abdominal aortic aneurysm. Lymph nodes: Unremarkable. No enlarged lymph nodes. Bladder: Unremarkable as visualized. Reproductive: Unremarkable as visualized. Fluid: Some nonspecific CDS fluid (perhaps physiological, eg). Bones/joints: Unremarkable. No acute fracture. Soft tissues: Obese patient. IMPRESSION: No definite acute findings. Splenomegaly. No hydronephrosis is appreciated. No radiodense urinary tract stones are visualized. Some nonspecific CDS fluid (perhaps physiological, eg). Electronically signed by: Racquel Peter On 03/04/2020 05:11:37 AM
[2020-03-04] MEDS ORDERED: ONDANSETRON 4 MG ORAL DISINTEGRATING TAB PO ONE (06:00)
[2020-03-04 06:45] LABS: HCG, SERUM QUALITATIVE NEGATIVE (NEGATIVE)
[2020-03-04 07:01] LABS: ACETAMINOPHEN LEVEL < 2.0 UG/ML (10.0-30.0); ALBUMIN 3.5 GM/DL (3.2-5.2); ALT/SGPT 23 U/L (12-78); BILIRUBIN,DIRECT 0.1 MG/DL (0.0-0.2); BILIRUBIN,TOTAL 0.3 MG/DL (0.2-1.0); ETHYL ALCOHOL (ETHANOL) < 0.003 % (0.000-0.010); SALICYLATE LEVEL < 1.7 MG/DL (5.0-30.0); TOTAL PROTEIN 7.2 GM/DL (6.4-8.2)
[2020-03-04 07:19] LABS: AMPHETAMINES LEVEL URINE NEGATIVE (NEGATIVE); BARBITURATES URINE NEGATIVE (NEGATIVE); BENZODIAZEPINES URINE NEGATIVE (NEGATIVE); CANNABINOIDS URINE POSITIVE (NEGATIVE); COCAINE METABOLITE URINE NEGATIVE (NEGATIVE); METHADONE URINE NEGATIVE (NEGATIVE); OPIATES URINE NEGATIVE (NEGATIVE); PHENCYCLIDINE URINE NEGATIVE (NEGATIVE)
[2020-03-04] MEDS ORDERED: METOCLOPRAMIDE 10 MG TAB PO ONE (08:15)
[2020-03-04] MEDS ORDERED: MAALOX 30 ML SUSP *UDC PO PRN (10:45)
[2020-03-04] MEDS ORDERED: MOM 30ML SUSPENSION UDC PO PRN (10:45)
[2020-03-04 13:47] VITALS: BP 132/80
[2020-03-04] MEDS ORDERED: IBUPROFEN 600MG TAB PO PRN (16:00)
[2020-03-04] MEDS: FLUoxetine 20 MG CAP PO SCH (16:35)
[2020-03-04] MEDS ORDERED: ONDANSETRON 4 MG ORAL DISINTEGRATING TAB SL PRN (21:30)
[2020-03-04] MEDS: CEPHALEXIN 500 MG CAP PO SCH (21:31)
[2020-03-04] MEDS: ACETAMINOPHEN TAB 650MG DOSE (2X325MG) PO PRN (21:33)
[2020-03-04] MEDS: traZODone 50 MG TAB PO PRN (22:07)
[2020-03-05 06:38] VITALS: BP 133/95
[2020-03-05] MEDS: CEPHALEXIN 500 MG CAP PO SCH ×2 (08:32→21:26)
[2020-03-05] MEDS: FLUoxetine 20 MG CAP PO SCH (08:32)
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
[2020-03-05] MEDS: ACETAMINOPHEN TAB 650MG DOSE (2X325MG) PO PRN (11:20)
[2020-03-05 15:57] VITALS: BP 159/84
--- NOTE | 2020-03-05 17:52 | HPEPDOC ---
[facility] Medical History & Physical Date of Admission Mar 04, 2020 Date of Service: Mar 05, 2020 History and Physical CHIEF COMPLAINT: Psychiatric issues, suicidal ideations HISTORY OF PRESENT ILLNESS: Patient brought in for inpatient psychiatric evaluation regarding psychiatric issues and suicidal ideations. UTI discovered in the emergency department. She does not have dysuria, but reports significantly foul-smelling urine. She denies any fevers or chills. 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 Recently started on iron pills, however she was not anemic upon admission, and she admits that she has not been taking the iron pills anyway because they give her dyspepsia. PAST SURGICAL HISTORY: Decompression craniotomy in May 2019 1 month ago (this was her second) SOCIAL HISTORY: Occasional alcohol use. She apparently has been inappropriately continuing the use of Percocet after her even when her pain has resolved. FAMILY HISTORY: Apparently she has a family history of bipolar disorder. REVIEW OF SYSTEMS: Constitutional: Patient denies fevers, chills, night sweats, recent weight gai n/loss. HEENT: Patient denies blurred or double vision, transient visual disturbances, postnasal drip, epistaxis, sore throat, difficulty chewing or swallowing food. Cardiovascular: Patient denies chest discomfort/pain, palpitations, exertional dyspnea, orthopnea, edema of the extremities, claudication. Respiratory: Patient denies dyspnea, wheezing, cough, hemoptysis, sputum produc tion. Gastrointestinal: Patient denies nausea, vomiting, diarrhea, constipation, abdominal pain, melena, hematochezia, hematemesis, jaundice. PHYSICAL EXAMINATION: General: Awake, alert, oriented 3. HEENT: Head normocephalic atraumatic, conjunctiva are pink, sclera are nonicteric, buccal mucosa is pink and moist with no lesions in the oropharynx. Hearing is grossly intact to conversation. Respiratory: Clear to auscultation bilaterally with no wheezes, rales, or rhonchi. Cardiovascular: Regular rate and rhythm, with no rubs, gallops, or murmur. Abdomen: Soft, nontender, nondistended, no hepatosplenomegaly appreciated. Bowel sounds present. Extremities: 2+ pulses in the radial and dorsalis pedis bilaterally. No evidence of clubbing or cyanosis. ASSESSMENT: UTI -Started on cephalexin, this is an appropriate choice. I have reduced the length of time from 10 days down to 7 as this would be sufficient. Psychiatric issues -Continue per recommendations from the psychiatric team Vital Signs Vital Signs Date Time Temp Pulse Resp B/P (MAP) Pulse Ox O2 Delivery O2 Flow Rate FiO2 03/05/20 15:57 97.6 76 16 159/84 (109) 03/05/20 06:38 98 Room Air Laboratory Data Microbiology Microbiology 03/04/20 Blood Culture - Preliminary, Resulted No growth after 24 hours . All specim... Home Medications Scheduled Vit,Calc76/Iron/Folic (Prenatabs Rx Tablet) 1 Each Tablet, 1 TAB PO QHS Allergies Coded Allergies: No Known Allergies (Unverified , 05/30/19) A-FIB/CHADSVASC A-FIB History Current/History of A-Fib/PAF?: No Current PO Anticoag Therapy: No OCTAVIO CASTELLANOS DO Mar 05, 2020 17:52
[2020-03-05] MEDS: traZODone 50 MG TAB PO PRN (21:26)
[2020-03-06 06:27] VITALS: BP 146/88
--- NOTE | 2020-03-06 07:23 | MHIPN ---
DATE OF EVALUATION: 03/05/2020 The patient today tells me that she is not depressed. She says her mood is 2/10 with the closer to 10 as the most depressed today. She says she slept good. Her abdominal pain is also resolved. She also tells me that she was constipated and that the constipation is gone now. She says that she rarely has constipation. Actually, the patient was started on Keflex to treat for urinary tract infection and they did do urine cultures. She came to the emergency room and it turns out that the results show that they were negative for any growth. MENTAL STATUS EXAMINATION: The patient is alert and oriented times three. Eye contact is fair. Psychomotor activity appears to be normal. She is verbally spontaneous. She does tend to be vague at times. There is no formal thought disorder noted. She said her mood is "better". Affect is appropriate to mood. She is not psychotic, suicidal or homicidal. Concentration is fair. Memory intact. Insight and judgment fair. TREATMENT PLAN: The patient also mentioned that she did not feel she had bonded with her son. The patient does seem to be improving today. She is denying suicidal or homicidal ideations. The patient will continue to be monitored for continued elevation and stabilization of her mood and continued resolution of suicidal ideations. AUGUSTIN
[2020-03-06] MEDS: CEPHALEXIN 500 MG CAP PO SCH ×2 (08:41→20:52)
[2020-03-06] MEDS: FLUoxetine 20 MG CAP PO SCH (08:41)
--- NOTE | 2020-03-06 09:26 | MHIPNPDOC ---
[facility] Progress Note Progress Note DATE OF SERVICE: 03/06/20 HPI: Elida presents today for a follow up on her medications. She complains of a sharp, stabbing pain in her eye, feels that it is related to not wearing her g lasses and is better with Tylenol. MEDICATIONS: She is taking Zoloft and affirms it helped with her PTSD. She notes unspecified medication helped calm her mind. Objective Appearance: Well nourished. Well groomed. Behavior: Engaged. Pleasant. Cooperative with good eye contact. Affect: Full range. Appropriate to context. Mood: Generally good. Euthymic. Appropriately reactive. Speech: Normal rate. Normal volume. Motor: No gross motor abnormalities. Cognition: Alert, Attentive, and Oriented to person, place, time. Memory: No gross abnormalities of short or skilled nursing memory noted during interview. No formal testing. Thought Form: Linear and goal directed. Thought Content: No thoughts of self harm. No evidence of suicidal ideation. No evidence of delusions. No evidence of aggressive or homicidal ideation. Perception: No perceptual abnormalities noted. Judgement: intact as evidenced by decision making in the recent past. Insight: good insight into symptoms and treatment options. Assessment F32.9 Major depressive disorder, single episode, unspecified Plan Continue current medications without change, if eye pain doesn't change will have hospitalist eval before leaving to ensure that their is no acute pathology Observe patient and discharge tomorrow if patient continues to do well overnight. Vital Signs Vital Signs Date Time Temp Pulse Resp B/P (MAP) Pulse Ox O2 Delivery O2 Flow Rate FiO2 03/06/20 06:27 98.6 66 12 146/88 (107) 95 Room Air Current Medications Current Medications Medications (Trade) Dose Ordered Sig/Meche Route PRN Reason Start Time Stop Time Status Last Admin Dose Admin Acetaminophen (Tylenol Tab) 650 mg Q6HP PRN PO HEADACHE or DISCOMFORT 03/04/20 10:45 03/05/20 11:20 Al Hydrox/Mg Hydrox/Simethicone (Mylanta) 30 ml Q4HP PRN PO HEARTBURN/INDIGESTION 03/04/20 10:45 Cephalexin Monohydrate (Keflex) 500 mg BID PO 03/04/20 09:00 03/11/20 09:01 03/06/20 08:41 Fluoxetine HCl (PROzac) 20 mg DAILY PO 03/04/20 09:00 03/06/20 08:41 Home Med (Med Rec Complete!) ASDIRECTED XX 03/04/20 08:45 03/04/20 08:35 DC Ibuprofen (Advil) 600 mg Q6HP PRN PO MODERATE PAIN (PS 5-7) 03/04/20 16:00 Magnesium Hydroxide (Milk Of Magnesia) 30 ml DAILYPRN PRN PO CONSTIPATION 03/04/20 10:45 Ondansetron HCl (Zofran Odt) 8 mg Q4HP PRN SL NAUSEA OR VOMITING 03/04/20 21:30 03/04/20 21:31 Trazodone HCl (Desyrel) 50 mg QHSP PRN PO INSOMNIA 03/04/20 10:45 03/05/20 21:26 Allergies Coded Allergies: No Known Allergies (Unverified , 05/30/19) ANGELY ADLER DO Mar 06, 2020 09:26
[2020-03-06 16:27] VITALS: BP 134/76
[2020-03-06] MEDS: traZODone 50 MG TAB PO PRN (20:53)
[2020-03-07 07:00] VITALS: BP 134/88
[2020-03-07] MEDS: FLUoxetine 20 MG CAP PO SCH (08:50)
[2020-03-07] MEDS: CEPHALEXIN 500 MG CAP PO SCH ×2 (08:50→20:58)
[2020-03-07 16:37] VITALS: BP 119/73
--- NOTE | 2020-03-07 20:24 | MHIPN ---
DATE: 03/07/2020 The patient today tells me that she is feeling better. She says she is not feeling as depressed as she had been. She is denying having any suicidal ideations, and she said that she slept good. MENTAL STATUS EXAM: This patient is alert, oriented times three. She is cooperative, verbally spontaneous. There is no formal thought disorder. She says her mood is good, affect is full range and appropriate. She is not psychotic. She is denying suicidal or homicidal ideation. Concentration is fair. Memory intact. Insight and judgment is fair. DIAGNOSES: Other specified depressive disorder. Rule out unspecified psychotic disorder. Rule out post-traumatic stress disorder. Rule out opioid misuse and cannabis use disorder. TREATMENT PLAN: At this point, the patient is saying that she is feeling better, and she is not suicidal. We will continue to monitor her for continued resolution of suicidal ideations and stabilization of her mood. I think at this point it is important to set up a phone conference meeting between the patient and her to make sure that the understands the patient's problems and to assess the degree of supportiveness to be expected from the . If she continues to do well, we will be looking at discharge tomorrow.
[2020-03-07] MEDS: traZODone 50 MG TAB PO PRN (20:58)
[2020-03-08 06:47] VITALS: BP 120/74
[2020-03-08] MEDS: CEPHALEXIN 500 MG CAP PO SCH (08:41)
[2020-03-08] MEDS: FLUoxetine 20 MG CAP PO SCH (08:41)
--- NOTE | 2020-03-08 09:35 | MHDSPDOC ---
[facility] Discharge Summary Discharge Summary DATE OF ADMISSION: Mar 04, 2020 at 10:42 DATE OF DISCHARGE: Mar 08, 2020 at 14:18 DISCHARGE DIAGNOSES: Unspecified depressive disorder REASON FOR ADMISSION: 24-year-old woman was admitted for suicidal ideation and setting of depression CONSULTANTS INVOLVED:[ None (basic hospitalist screening)] TREATMENT AND PROGRESS ON THE UNIT : Medication changes: started on Prozac 20 mg daily, with positive effects, her depression resolved well without any major problems Behavior on unit: friendly and amenable Treatment attendance: attended Notable issues on presentation: none State on discharge: [improved] DISCHARGE ASSESSMENT: The patient a 24 year old woman, with likely depression, presented to [facility], where they treated with appropriate agents and resolve well without any complications. Legal status considerations: The patient at the time of discharge did not meet criteria for involuntary admission/extension due to having a [normal] mental status exam, [fair] insight into the situation, They are engaged in the discharge process, as well as being friendly and amenable in behavioral control and havent been engaging in any observed concerning behavior or ideation recently. They decline voluntary extension/admission at this time and must be discharged in good emilee, as Im unable to make a case for holding the patient against their will. They may have historical risk factors of admissions and other interactions with psychiatry however, those are not modifiable from a clinical perspective. The patient will need to be discharged in good emilee. MENTAL STATUS EXAMINATION ON DISCHARGE: [General: Well dressed with good hygiene Speech: Spontaneous and fluid Thought processes: Linear and logical Thought content: Future orientated Abstract reasoning, and computation: Intact Description of associations: Intact Description of abnormal or psychotic thoughts:Denies any suicidal or homicidal ideation. Denies any auditory or visual hallucinations. Does not appear to be responding to internal stimuli. Does not appear to be endorsing any bizarre or paranoid ideation. Judgment: fair Insight: fair Orientation: Alert and orientated 3 Recent and remote memory: Intact Attention span and concentration: Intact Fund of knowledge: Adequate Mood: "okay" Affect: Euthymic with a full range] PLAN/FOLLOWUP ARRANGEMENTS: Follow up appointments made (PCP and MH in 5 days of D/C date) and safety plan completed. Safety Planning aspects completed prior to discharge [Medication supplies limited to 7 days with 4 refills to prevent accumulation to OD] [Family contact completed, educated on safe practices, instructed on removal and mitigation of dangerous means] [RN reviewed crisis hotline information and other aspects to empower patient to access care in interim before next appointment.] The amount of time spent in the coordination of care for this patient was approximately 30 minutes. Vital Signs/I&Os Vital Signs Date Time Temp Pulse Resp B/P (MAP) Pulse Ox O2 Delivery O2 Flow Rate FiO2 03/08/20 06:47 97.9 84 12 120/74 (89) Room Air 03/07/20 07:00 97 Laboratory Data Microbiology Microbiology 03/04/20 Blood Culture - Preliminary, Resulted No Growth after 72 hours. All specime... Medications Scheduled Fluoxetine Hcl (Fluoxetine HCl) 20 Mg Capsule, 20 MG PO DAILY for mood for 7 Days, #7 Vit,Calc76/Iron/Folic (Prenatabs Rx Tablet) 1 Each Tablet, 1 TAB PO QHS, (Reported) Allergies Coded Allergies: No Known Allergies (Unverified , 05/30/19) ANGELY ADLER DO Mar 08, 2020 09:35
[2020-03-08] MEDS ORDERED: FLUO20CA22 PO (09:57)
== END 2020-03-08 14:18 | disposition home or self-care (01) | DRG 881 ==
LOC: M ED 02:11 → M ED INP 10:42 → M PSY 12:19
PROVIDERS: ADMIT Psychiatry & Neurology Addiction Medicine; ATTEND Psychiatry & Neurology Addiction Medicine
DX: F32.9 Major depressive disorder, single episode, unspecified (principal); R45.851 Suicidal ideations; N39.0 Urinary tract infection, site not specified; Z79.899 Other long term (current) drug therapy; F10.10 Alcohol abuse, uncomplicated

== ENCOUNTER 2020-05-19 10:58 | Emergency (ER) | payer OTHER ==
[~2020-05-19] VITALS: Ht 167.6 cm; Wt 123.6 kg
[~2020-05-19 10:58] MED LIST changes: +FLUO20CA22 PO
[2020-05-19 11:33] VITALS: BP 124/69
[2020-05-19] MEDS ORDERED: NEXP1IMP PO (11:41)
[2020-05-19 11:50] LABS: HEMATOCRIT 40.6 % (36.0-47.0); HEMOGLOBIN 13.2 g/dl (12.0-15.5); MEAN CORPUSCULAR HEMOGLOBIN 28.8 pg (27.0-33.0); MEAN CORPUSCULAR HGB CONC 32.5 g/dl (32.0-36.5); MEAN CORPUSCULAR VOLUME 88.6 fl (80.0-96.0); PLATELET COUNT, AUTOMATED 181 10^3/uL (150-450); RED BLOOD COUNT 4.58 10^6/uL (4.00-5.40); WHITE BLOOD COUNT 6.4 10^3/uL (4.0-10.0)
[2020-05-19 12:18] LABS: AMPHETAMINES LEVEL URINE NEGATIVE (NEGATIVE); BARBITURATES URINE NEGATIVE (NEGATIVE); BENZODIAZEPINES URINE NEGATIVE (NEGATIVE); CANNABINOIDS URINE POSITIVE (NEGATIVE); COCAINE METABOLITE URINE NEGATIVE (NEGATIVE); METHADONE URINE NEGATIVE (NEGATIVE); OPIATES URINE NEGATIVE (NEGATIVE); PHENCYCLIDINE URINE NEGATIVE (NEGATIVE)
[2020-05-19 12:28] LABS: ACETAMINOPHEN LEVEL < 2.0 UG/ML (10.0-30.0); ALBUMIN 3.7 GM/DL (3.2-5.2); ALT/SGPT 26 U/L (12-78); BILIRUBIN,DIRECT < 0.1 MG/DL (0.0-0.2); BILIRUBIN,TOTAL 0.2 MG/DL (0.2-1.0); BLOOD UREA NITROGEN 12 MG/DL (7-18); CALCIUM LEVEL 9.1 MG/DL (8.5-10.1); CARBON DIOXIDE LEVEL 24 MEQ/L (21-32); CHLORIDE LEVEL 109 MEQ/L (98-107); CREATININE FOR GFR 0.71 MG/DL (0.55-1.30); GLOMERULAR FILTRATION RATE > 60.0 (>60); GLUCOSE, FASTING 71 MG/DL (70-100); POTASSIUM SERUM 4.1 MEQ/L (3.5-5.1); SALICYLATE LEVEL 2.5 MG/DL (5.0-30.0); SODIUM LEVEL 139 MEQ/L (136-145); TOTAL PROTEIN 7.5 GM/DL (6.4-8.2)
[2020-05-19 12:29] LABS: ETHYL ALCOHOL (ETHANOL) < 0.003 % (0.000-0.010)
[2020-05-19 12:30] LABS: HCG, SERUM QUALITATIVE NEGATIVE (NEGATIVE)
== END 2020-05-19 13:57 | disposition home or self-care (01) ==
LOC: M ED 10:58
DX: F43.20 Adjustment disorder, unspecified (principal); Z79.899 Other long term (current) drug therapy
CPT/HCPCS: 36415; 80048; 80076; 80307; 84443; 84703; 85027; 99284; G0480